=== PATIENT | male | born 2005 | race African-American/Black ===

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

== ENCOUNTER 2023-06-08 19:30 | Emergency (ER) | payer OTHER ==
[2023-06-08 19:45] VITALS: BP 137/87; PULSE 103; RESP 18; TEMP 98.7; BMI 50.2
== END 2023-06-08 23:08 | disposition home or self-care (01) ==
LOC: JERFT 19:30
DX: R21 Rash and other nonspecific skin eruption (principal); L30.9 Dermatitis, unspecified
CPT/HCPCS: 99282-25

== ENCOUNTER 2023-07-29 11:44 | Emergency (ER) | payer OTHER ==
[2023-07-29 12:06] VITALS: BP 157/79; PULSE 104; RESP 18; TEMP 98.7; BMI 41.3
[2023-07-29] MEDS ORDERED: PENICILLIN G BENZATHINE 1,200,000 UNIT/2 ML PFS IM ONE (13:25)
== END 2023-07-29 14:15 | disposition home or self-care (01) ==
LOC: JERFT 11:44
DX: R05.9 Cough, unspecified (principal); R09.81 Nasal congestion; R50.9 Fever, unspecified; J02.0 Streptococcal pharyngitis; R00.0 Tachycardia, unspecified; J39.2 Other diseases of pharynx; Z20.822 Contact with and (suspected) exposure to COVID-19
CPT/HCPCS: 0241U-QW; 71046-TC-FY; 87651; 99284-25